=== PATIENT | female | born 1960 | race Caucasian/White ===

== ENCOUNTER 2021-05-21 12:34 | Emergency (ER) | payer BC ==
[~2021-05-21] VITALS: Ht 165.1 cm; Wt 94.3 kg
== END 2021-05-21 15:30 | disposition home or self-care (01) ==
LOC: ER1 12:34
DX: Z23 Encounter for immunization (principal); U07.1 COVID-19
CPT/HCPCS: 71045; 94760; 99283; M0243

== ENCOUNTER → 2021-07-31 | Outpatient (CLI) | payer BC | LOC: CT 08:13 | DX: C49.A2 Gastrointestinal stromal tumor of stomach (principal) | CPT/HCPCS: 71260; Q9967 ==